=== PATIENT | male | born 1955 | race Caucasian/White ===

== ENCOUNTER → 2020-09-22 | Outpatient (CLI) | payer BC, MEDICARE | END | disposition home or self-care (01) | LOC: LABPAT 12:27 | PROVIDERS: ATTEND Orthopaedic Surgery | DX: Z01.812 Encounter for preprocedural laboratory examination (principal) | CPT/HCPCS: 87070 ==

== ENCOUNTER → 2020-10-16 | Outpatient (CLI) | payer MEDICARE ==
[2020-10-16 11:44] LABS: Appearance,Urine Clear (Clear); Bilirubin,Urine Negative (Negative); Blood,Urine Negative (Negative); Color,Urine Yellow; Glucose,Urine (UA) Negative (Negative); Ketones,Urine Negative (Negative); Leukocyte Esterase,Urine Negative (Negative); Nitrite,Urine Negative (Negative); Protein,Urine Trace (Negative); Specific Gravity,Urine 1.027 (1.001-1.035); Urobilinogen,Urine <2.0 mg/dL (<2.0)
[2020-10-16 11:57] LABS: HGB 15.3 gm/dL (13.0-17.5); MCH 31.3 pg (25.0-35.0); MCHC 34.7 g/dL (31.0-37.0); MCV 90.2 fL (80.0-100.0); Mean Platelet Volume 6.8; Platelet Count 210 k/uL (150-450); RBC 4.87 m/uL (4.30-5.90); RDW 13.3 % (11.5-15.5); WBC 5.3 k/uL (3.8-10.6)
[2020-10-16 12:13] LABS: ALT 16 U/L (4-49); AST 23 U/L (17-59); African American GFR (CKD) >90 (>60 ml/min/1.73 sqM); Albumin 4.4 g/dL (3.5-5.0); Alkaline Phosphatase 85 U/L (38-126); Anion Gap 10 mmol/L; Blood Urea Nitrogen 18 mg/dL (9-20); Calcium 8.7 mg/dL (8.4-10.2); Carbon Dioxide 22 mmol/L (22-30); Chloride 107 mmol/L (98-107); Glucose 109 mg/dL (74-99); Non-African American GFR(CKD) 78 (>60 ml/min/1.73 sqM); Potassium 4.1 mmol/L (3.5-5.1); Sodium 139 mmol/L (137-145); Total Bilirubin 0.6 mg/dL (0.2-1.3)
[2020-10-16 12:19] LABS: Partial Thromboplastin Time 24.1 sec (22.0-30.0); Prothrombin Time 10.1 sec (9.0-12.0)
== END | disposition home or self-care (01) ==
LOC: LABPAT 10:18
PROVIDERS: ATTEND Orthopaedic Surgery
DX: Z01.818 Encounter for other preprocedural examination (principal); M16.11 Unilateral primary osteoarthritis, right hip
CPT/HCPCS: 36415; 80053; 81003; 85027; 85610; 85730

== ENCOUNTER 2020-10-27 10:17 | Day surgery (SDC) | payer BC, MEDICARE ==
[2020-10-26 08:31] VITALS: BMI 29.3
[~2020-10-27 10:17] MED LIST: ACETAMINOPHEN TAB 500 MG TAB PO PRN; DEXAMETHASONE SOD PHOSPHATE 4 MG/ML 1 ML VIAL IV ONE; GABAPENTIN 300 MG CAP PO PRN; HYDROcodone/APAP 5-325MG 1 EACH TAB PO PRN; HYDROmorphone 0.2 MG/1 ML SYRINGE IVP PRN; HYDROmorphone 0.5 MG/0.5 ML SYRINGE IVP PRN; LIDOCAINE 1% (10MG/ML) FOR IV START INTRADERMA PRN; MAGNESIUM HYDROXIDE 2,400 MG/10 ML CUP PO PRN; MELOXICAM 7.5 MG TAB PO PRN; MIDAZOLAM 2 MG/2 ML VIAL IV PRN; NALOXONE 0.4 MG/ML 1 ML VIAL IV PRN; ONDANSETRON 4 MG/2 ML VIAL IVP ONE; ONDANSETRON 4 MG/2 ML VIAL IVP PRN; ROPIVACAINE 246.25 MG, EPINEPHrine 0.5 MG, KETOROLAC 30 MG, cloNIDine HCL/PF 80 MCG, WA... MISCELLANE PRN; TRANEXAMIC ACID 1,000 MG in SODIUM CHLORIDE 0.9% 100 ML IVPB PRN
[2020-10-27] MEDS: LACTATED RINGERS 1,000 ML IV SCH (11:03)
[2020-10-27] MEDS ORDERED: PHENYLEPHRINE 10 MG/ML VIAL ONE (11:19)
[2020-10-27] MEDS ORDERED: SODIUM CHLORIDE 0.9% IRRIG 1,000 ML BTL IRRIGATION ONE (11:19)
[2020-10-27] MEDS ORDERED: fentaNYL (PF) 50 MCG/ML 2 ML AMP ONE (11:19)
[2020-10-27] MEDS ORDERED: MIDAZOLAM 2 MG/2 ML VIAL ONE (11:19)
[2020-10-27] MEDS ORDERED: TRANEXAMIC ACID 1,000 MG/10 ML VIAL ONE (11:19)
[2020-10-27] MEDS ORDERED: PROPOFOL 10 MG/ML 20 ML VIAL IV ONE (11:19)
[2020-10-27] MEDS ORDERED: SODIUM CHLORIDE 0.9% 100 ML BAG ONE (11:19)
[2020-10-27] MEDS ORDERED: HEPARIN SODIUM,PORCINE 10,000 UNIT/ML 1 ML VIAL ONE (11:19)
[2020-10-27] MEDS ORDERED: ceFAZolin 3,000 MG in SODIUM CHLORIDE 0.9% IRRIGATIO 3,000 ML IRRIGATION ONE (11:24)
--- NOTE | 2020-10-27 12:41 | P.OP ---
Date of Procedure: 10/27/20 Preoperative Diagnosis: Severe osteoarthritis right hip Postoperative Diagnosis: Severe osteoarthritis right hip Procedure(s) Performed: Right total hip arthroplasty with a direct anterior approach Implants: [employer] Polarstem standard size 7 collar [employer] R3, 3 hole hemispherical acetabular shell, 52 mm [employer] Reflection 6.5 mm cancellus screw, 20 mm 2 [employer] R3, XLPE 20 acetabular liner [employer] Oxinium femoral head 36 m, +0 All components were press-fit. The articulation is Oxinium on polyethylene. Anesthesia: spinal Surgeon: Dannie Fry Addiction Counselor #1: Brenda Rodriguez Estimated Blood Loss (ml): 100 Pathology: other (Femoral head) Condition: stable Disposition: PACU Indications for Procedure: After failure of conservative treatment we discussed the surgical and no nsurgical treatment options at length. Patient wishes to proceed with a total hip arthroplasty with a direct anterior approach. Complications specific to this procedure were discussed at length, including but not limited to infection, leg length discrepancy, dislocation, nerve injury, and fracture. Covid-19 was also discussed at length with the patient, and they are aware of the current policies and procedures. The patient was given the option of delaying surgery, but they elect to proceed knowing these risks. Patient is aware of all these complications and informed consent was obtained Operative Findings: The operative findings are consistent with severe osteoarthritis of the right hip Description of Procedure: Patient was seen and evaluated in the preoperative area and the consent was reviewed. The operative site was marked with a skin marker. The patient was then brought to the operating room and given preoperative antibiotics intravenously. 1 g of Tranexamic acid was also given intravenously. A spinal anesthetic was administered by the anesthesia department. The patient was then placed on the [place] table with the bony prominences well-padded. The hip area was then prepped with a ChloraPrep solution and draped in the usual sterile fashion. A universal timeout was then performed, which confirmed the patient's name, surgical site, ALLERGIES, and procedure being performed on the consent. Next the incision site was located at 1 cm distal and 1 cm lateral to the anterior superior iliac spine. The skin and subcutaneous tissues were sharply incised. Incision was carefully dissected down to the fascia overlying the tensor fascia diana muscle. This fascia was then incised in line with the incision. Care was taken to stay laterally in order to avoid injuring the lateral femoral cutaneous nerve. Next, using blunt finger dissection, the tensor fascia diana muscle was dissected off its investing fascia. The muscle was then carefully retracted laterally with a cobra retractor over the lateral neck of the femur. Next, the circumflex vessels were identified and cauterized using the AquaMantis device. The anterior hip capsule was then exposed. The capsule was then opened and an inverted T fashion. Cobra retractors were then placed intracapsularly. The retractors were maintained intracapsular throughout the procedure. The proximal femur was then visualized. A small amount of traction was placed on the leg. The femoral neck was then osteotomized appropriate level above the lesser trochanter. A small wedge of bone was then removed from the remaining femoral head. Next, using a corkscrew the femoral head was removed from the acetabulum. On gross visual inspection, the femoral head had complete loss of articular cartilage and multiple periarticular osteophytes. The femoral head was then measured. Attention was then turned to the acetabulum. The acetabulum was exposed and any remaining labrum was excised. Sequential reaming of the acetabulum was performed using fluoroscopic guidance until there was a good bed of bleeding cancellus bone. When the appropriate size was reache d, a trial was then placed. The position and fit of the trial was checked with fluoroscopy. The trial was then removed. Then, using fluoroscopic guidance, the final implant was impacted at 20 of anteversion and 40 of abduction, and fully seated in the acetabulum. 2 screws were then placed in the acetabulum. Again fluoroscopy was used to check position of the screws. Next, the liner was then impacted, with a 20 elevated liner located in the anterior superior quadrant. Component locking was confirmed. Attention was then directed to the femur. With the aid of the [place] table, the femur was externally rotated to approximately 130, extended, and adducted under the opposite leg. A side hook was then placed under the proximal femur, and the side hook elevator was used to elevate the proximal femur while releasing the capsule. Retractors were then placed. A capsular release was performed, as well as a release of the conjoined tendon, which afforded excellent visualization of the proximal femur. Next, a box osteotome was used to lateralize the proximal femur. A candle molder hand was then used to locate the femoral canal. Sequential broaching was then performed with appropriate size which afforded excellent fixation in the proximal femur. A trial was then placed with appropriate head and neck, and the hip was gently reduced with the aid of the [place] table. Fluoroscopy was then used to check position of the components, as well as to ensure equal leg lengths. The hip was then gently dislocated and the trials were then removed. Final implants were then impacted and the hip was again reduced. Final fluoroscopic x-rays confirmed that the components were in anatomic position, as well as equal leg lengths. The hip was also taken through range of motion, and found to be stable. The hip was then copiously irrigated with antibiotic solution with pulsatile lavage. The hip was then irrigated with Irrisept solution. The soft tissues were then injected with a ropivacaine solution, which consisted of 246.25 mg of ropivacaine, 0.5 mg of epinephrine, 30 mg of Toradol, 80 g of clonidine, and 48.45 mL of sterile water, for a total of 100 mL of fluid injected. A second dose of 1 g of Tranexamic acid was also given intravenously. Any blood collected by [employer] was then returned to the patient at this time. The fascia was then closed with 2-0 strata fix suture. The subcutaneous tissue was closed with 3-0 Vicryl. The subcuticular tissue was closed with 3-0 strata fix suture. The skin was then closed with Exofin skin glue. After the glue and dried, and Optifoam silver impregnated dressing was applied. The patient was then transferred to the recovery room in stable condition. The first assistant manager RADHA Leon was required due to the complexity of surgery, and the need for skilled nutrition services assistant for positioning, draping, exposure, retraction, and closure of the wound.
--- NOTE | 2020-10-27 12:55 | FL ---
EXAMINATION TYPE: FL guidance operating room DATE OF EXAM: 10/27/2020 HISTORY: Fluoroscopy time 49 seconds of fluoroscopy provided. IMPRESSION: 1. Fluoroscopy time.
--- NOTE | 2020-10-27 12:56 | XR ---
EXAMINATION TYPE: XR Hip Limited RT DATE OF EXAM: 10/27/2020 COMPARISON: NONE HISTORY: Postop TECHNIQUE: One view submitted. FINDINGS: There is postsurgical change in near anatomic alignment. There is soft tissue edema and emphysema. IMPRESSION: 1. Postoperative change. Appears in near-anatomic alignment.
[2020-10-27] MEDS: diphenhydrAMINE 50 MG/ML 1 ML VIAL IVP ONE ×2 (13:31→13:52)
[2020-10-27] MEDS: SODIUM CHLORIDE 0.9% 1,000 ML IV SCH ×2 (14:44→19:58)
[2020-10-27] MEDS: SENNOSIDES-DOCUSATE SODIUM 1 EACH TAB PO SCH (20:17)
[2020-10-27] MEDS: ASPIRIN 325 MG TAB PO SCH (20:17)
[2020-10-27] MEDS: HYDROcodone/APAP 5-325MG 1 EACH TAB PO PRN (20:18)
[2020-10-28] MEDS: LACTATED RINGERS 1,000 ML IV SCH (03:33)
[2020-10-28 07:04] LABS: Basophils % (A) 0 %; Eosinophils # (A) 0.1 k/uL (0-0.7); Eosinophils % (A) 1 %; HCT 39.7 % (39.0-53.0); HGB 13.5 gm/dL (13.0-17.5); Lymphocytes # (A) 0.5 k/uL (1.0-4.8); Lymphocytes % (A) 8 %; MCH 31.3 pg (25.0-35.0); MCHC 34.1 g/dL (31.0-37.0); MCV 91.7 fL (80.0-100.0); Mean Platelet Volume 6.8; Monocytes # (A) 0.7 k/uL (0-1.0); Monocytes % (A) 10 %; Neutrophils # (A) 5.5 k/uL (1.3-7.7); Neutrophils % (A) 78 %; Platelet Count 168 k/uL (150-450); RBC 4.33 m/uL (4.30-5.90); WBC 7.1 k/uL (3.8-10.6)
[2020-10-28] MEDS: MELOXICAM 7.5 MG TAB PO SCH (07:36)
[2020-10-28] MEDS: HYDROcodone/APAP 5-325MG 1 EACH TAB PO PRN (07:38)
[2020-10-28] MEDS: ASPIRIN 325 MG TAB PO SCH ×2 (07:38→19:58)
--- NOTE | 2020-10-28 08:07 | P.PN ---
Subjective Progress Note Date: 10/28/20 This is a 65-year-old male who is status post right total hip arthroplasty. This is postoperative day #1 and patient is seen and evaluated at bedside with Dr. Dannie Fry. Patient states that his pain is well controlled today. Patient states that he has been walking. Patient states that he is considering a rehab stay because he lives alone. Patient denies any fever/chills, numbness, weakness, tingling, abdominal pain, shortness of breath or chest pain. Objective - Vital Signs Vital signs: Vital Signs Temp 98.3 F 10/28/20 07:45 Pulse 75 10/28/20 07:45 Resp 16 10/28/20 07:45 BP 137/89 10/28/20 07:45 Pulse Ox 99 10/28/20 07:45 Intake & Output 10/27/20 10/28/20 10/28/20 18:59 06:59 18:59 Intake Total 1101 Output Total 100 Balance 1001 Weight 76.5 kg Intake: IV 1101 Output: Estimated Blood Loss 100 Other: Voiding Method Toilet Toilet # Voids 1 1 - Exam Vital signs are stable. Patient is in no acute distress and is alert and oriented 3. Calf is soft and nontender to palpation. Dressing is clean, dry, and intact. Patient has full foot and ankle motion without pain or difficulty. Neurovascular status and circulatory status are intact. - Labs CBC & Chem 7: 10/28/20 06:35 Labs: Abnormal Lab Results - Last 24 Hours (Table) 10/28/20 Range/Units 06:35 Lymphocytes # 0.5 L (1.0-4.8) k/uL Assessment and Plan (1) S/P total hip arthroplasty Current Visit: Yes Status: Acute Code(s): Z96.649 - PRESENCE OF UNSPECIFIED ARTIFICIAL HIP JOINT SNOMED Code(s): 110558136009 (2) Osteoarthritis of right hip Current Visit: Yes Status: Acute Code(s): M16.11 - UNILATERAL PRIMARY OSTEOARTHRITIS, RIGHT HIP SNOMED Code(s): 691632670688782 Plan: Continue routine postop care and pain control. Continue anticoagulation with aspirin. Weightbearing as tolerated with a walker. Leave dressing in place for 10 days. Appreciate input from medicine. Anticipate discharge to rehab on Monday, or possible discharge home with home care later today or tomorrow.
--- NOTE | 2020-10-28 10:37 | P.CONS ---
History of Present Illness - Reason for Consult Hypertension - History of Present Illness Patient is a pleasant 65-year-old male came in for right hip arthroplasty. Patient is clinically doing well patient does have history of hypertension and hyperlipidemia does take lisinopril for blood pressure. Patient denied any fever chills nausea vomiting patient is passing as did not move his bowels yet patient is feeling well and that his pain is well-controlled patient doesn't have a Fan catheter at this time. Patient denied any cough fever chills nausea vomiting. Review of Systems REVIEW OF SYSTEMS: CONSTITUTIONAL: No fever, no malaise, no fatigue. HEENT: No recent visual problems or hearing problems. Denied any sore throat. CARDIOVASCULAR: No chest pain, orthopnea, PND, no palpitations, no syncope. PULMONARY: No shortness of breath, no cough, no hemoptysis. GASTROINTESTINAL: No diarrhea, no nausea, no vomiting, no abdominal pain. NEUROLOGICAL: No headaches, no weakness, no numbness. HEMATOLOGICAL: Denies any bleeding or petechiae. GENITOURINARY: Denies any burning micturition, frequency, or urgency. MUSCULOSKELETAL/RHEUMATOLOGICAL: Denies any joint pain, swelling, or any muscle pain. ENDOCRINE: Denies any polyuria or polydipsia. The rest of the 14-point review of systems is negative. Past Medical History Past Medical History: GERD/Reflux, Hyperlipidemia, Hypertension, Osteoarthritis (OA) History of Any Multi-Drug Resistant Organisms: None Reported Past Surgical History: Hernia Repair, Joint Replacement, Tonsillectomy Additional Past Surgical History / Comment(s): Right anterior hip replacement (10/27/20) Past Anesthesia/Blood Transfusion Reactions: No Reported Reaction Past Psychological History: No Psychological Hx Reported Smoking Status: Former smoker Past Alcohol Use History: None Reported Additional Past Alcohol Use History / Comment(s): quit smoking over 20 yrs ago, smoked less than 1ppd from age 18 Past Drug Use History: None Reported - Past Family History Mother Family Medical History: No Reported History Medications and Allergies Home Medications Medication Instructions Recorded Confirmed Type Aspirin 325 mg PO DAILY 10/26/20 10/27/20 History Famotidine [Pepcid] 20 mg PO DAILY 10/26/20 10/27/20 History Lisinopril [Prinivil] 10 mg PO QAM 10/26/20 10/27/20 History Simvastatin 40 mg PO DAILY 10/26/20 10/27/20 History Aspirin 325 mg PO BID #60 tab 10/28/20 Rx HYDROcodone/APAP 5-325MG [[place] 1 - 2 tab PO Q6HR PRN #48 tab 10/28/20 Rx 5-325] Sennosides [Senokot] 2 tab PO DAILY PRN #60 tablet 10/28/20 Rx Allergies Allergy/AdvReac Type Severity Reaction Status Date / Time No Known Allergies Allergy Verified 10/27/20 10:50 Physical Exam Vitals: Vital Signs Temp Pulse Pulse Pulse Resp BP BP 10/28/20 07:45 98.3 F 75 16 137/89 10/28/20 02:58 98.6 F 77 100/64 10/27/20 19:30 76 16 10/27/20 19:15 98.3 F 76 107/69 10/27/20 16:10 69 118/73 10/27/20 15:55 71 128/76 10/27/20 15:40 71 139/76 10/27/20 15:25 78 133/77 10/27/20 15:10 84 123/67 10/27/20 14:55 97.9 F 71 16 113/66 10/27/20 14:35 65 16 114/69 10/27/20 14:20 53 L 16 123/68 10/27/20 14:05 69 16 117/66 10/27/20 13:52 78 16 146/66 10/27/20 13:37 70 16 150/67 10/27/20 13:22 84 16 112/60 10/27/20 13:07 97 F L 51 L 16 130/58 10/27/20 10:48 98.4 F 101 H 17 139/82 Pulse Ox 10/28/20 07:45 99 10/28/20 02:58 99 10/27/20 19:30 10/27/20 19:15 100 10/27/20 16:10 99 10/27/20 15:55 100 10/27/20 15:40 99 10/27/20 15:25 99 10/27/20 15:10 100 10/27/20 14:55 100 10/27/20 14:35 100 10/27/20 14:20 100 10/27/20 14:05 100 10/27/20 13:52 100 10/27/20 13:37 100 10/27/20 13:22 100 10/27/20 13:07 100 10/27/20 10:48 98 Intake and Output 10/27/20 10/28/20 10/28/20 22:59 06:59 14:59 Other: Voiding Method Toilet Toilet # Voids 1 1 Weight 76.5 kg PHYSICAL EXAMINATION: GENERAL: The patient is alert and oriented x3, not in any acute distress. Well developed, well nourished. HEENT: Pupils are round and equally reacting to light. EOMI. No scleral icterus. No conjunctival pallor. Normocephalic, atraumatic. No pharyngeal erythema. No thyromegaly. CARDIOVASCULAR: S1 and S2 present. No murmurs, rubs, or gallops. PULMONARY: Chest is clear to auscultation, no wheezing or crackles. ABDOMEN: Soft, nontender, nondistended, normoactive bowel sounds. No palpable organomegaly. MUSCULOSKELETAL: Deferred to orthopedic surgery EXTREMITIES: No cyanosis, clubbing, or pedal edema. NEUROLOGICAL: Gross neurological examination did not reveal any focal deficits. SKIN: No rashes. Results CBC & Chem 7: 10/28/20 06:35 Labs: Abnormal Lab Results - Last 24 Hours (Table) 10/28/20 Range/Units 06:35 Lymphocytes # 0.5 L (1.0-4.8) k/uL Assessment and Plan Plan: -Hypertension: Patient is on lisinopril will monitor the blood pressure patient is in the hospital will start the this medication depending on his vitals here. The patient is being discharged today he can resume this medication from tomorrow. Next line-hyperlipidemia continue with statin -Right hip arthroplasty patient is on 325 mg of aspirin twice a day for DVT prophylaxis. Pain management as per primary service. -Gastroesophageal reflux disease.
[2020-10-28] MEDS: SODIUM CHLORIDE 0.9% 1,000 ML IV SCH (17:26)
[2020-10-28] MEDS: SENNOSIDES-DOCUSATE SODIUM 1 EACH TAB PO SCH (19:58)
[2020-10-29] MEDS: LACTATED RINGERS 1,000 ML IV SCH (00:08)
[2020-10-29] MEDS: SODIUM CHLORIDE 0.9% 1,000 ML IV SCH (00:08)
[2020-10-29] MEDS: ASPIRIN 325 MG TAB PO SCH (08:14)
[2020-10-29] MEDS: HYDROcodone/APAP 5-325MG 1 EACH TAB PO PRN (08:15)
[2020-10-29] MEDS: MELOXICAM 7.5 MG TAB PO SCH (08:15)
[2020-10-29] MEDS ORDERED: FAMOTIDINE 20 MG TAB PO SCH (09:00)
[2020-10-29] MEDS ORDERED: ATORVASTATIN 20 MG TAB PO SCH (09:00)
[2020-10-29] MEDS ORDERED: lisinopriL 10 MG TAB PO SCH (10:30)
[2020-10-29 11:10] VITALS: BP 160/82; PULSE 94; RESP 18; TEMP 98.6
--- NOTE | 2020-10-29 11:22 | P.PN ---
Subjective Progress Note Date: 10/29/20 - Reason for Consult Hypertension - History of Present Illness Patient is a pleasant 65-year-old male came in for right hip arthroplasty. Patient is clinically doing well patient does have history of hypertension and hyperlipidemia does take lisinopril for blood pressure. Patient denied any fever chills nausea vomiting patient is passing as did not move his bowels yet patient is feeling well and that his pain is well-controlled patient doesn't have a Fan catheter at this time. Patient denied any cough fever chills nausea vomiting. 10/29/2020 Patient is seen and evaluated in follow-up status post right hip arthroplasty. Following along with orthopedic surgery. Patient does have history of high blood pressure and hyperlipidemia and will resume lisinopril and continue his statin. Patient was working with PT/OT therapy today. Social work also following and patient will be going to [facility] for rehab. Review of systems: Constitutional: No reports of fatigue, fever, or chills Cardiovascular: No reports of chest pain or palpitations Respiratory: No reports of shortness of breath or cough GI: No reports of nausea, vomiting, or diarrhea : No reports of dysuria or retention Neurovascular: No reports of weakness or numbness All medications have been reviewed Objective - Vital Signs Vital signs: Vital Signs Temp 99.5 F 10/29/20 01:45 Pulse 103 H 10/29/20 01:45 Resp 20 10/29/20 01:45 BP 160/76 10/29/20 01:45 Pulse Ox 99 10/29/20 01:45 Intake & Output 10/28/20 10/29/20 10/29/20 18:59 06:59 18:59 Intake Total 1140 Balance 1140 Intake: Intake, IV Titration 840 Amount Sodium Chloride 0.9% 1, 840 000 ml @ 70 mls/hr IV . [id number] [facility] Rx#:[id number] Oral 300 Other: Voiding Method Toilet Toilet # Voids 2 - Exam GENERAL: The patient is alert and oriented x3, not in any acute distress. Well developed, well nourished. HEENT: Pupils are round and equally reacting to light. EOMI. No scleral icterus. No conjunctival pallor. Normocephalic, atraumatic. No pharyngeal erythema. No thyromegaly. CARDIOVASCULAR: S1 and S2 present. No murmurs, rubs, or gallops. PULMONARY: Chest is clear to auscultation, no wheezing or crackles. ABDOMEN: Soft, nontender, nondistended, normoactive bowel sounds. No palpable organomegaly. MUSCULOSKELETAL: Deferred to orthopedic surgery EXTREMITIES: No cyanosis, clubbing, or pedal edema. Right hip anterior surgical dressing is dry and intact with no surrounding redness or swelling noted NEUROLOGICAL: Gross neurological examination did not reveal any focal deficits. SKIN: No rashes. - Labs CBC & Chem 7: 10/28/20 06:35 Assessment and Plan Assessment: -Hypertension: Patient is on lisinopril which will be resumed -hyperlipidemia continue with statin -Right hip arthroplasty patient is on 325 mg of aspirin twice a day for DVT prophylaxis. Pain management as per primary service. -Gastroesophageal reflux disease. Plan: Continue with current medications. Home medications have been resumed. Patient has been working with physical therapy and will be going to [facility] for continued PT/OT therapy. Surgical dressing on the right hip is dry and intact with no surrounding redness or swelling noted. Patient states he had a small bowel movement this morning and is tolerating diet with no reports of nausea or vomiting. Will continue to follow along with orthopedic surgery during hospitalization. Further recommendations to follow. Patient is being discharged to [facility] today
--- NOTE | 2020-10-29 11:51 | P.DS ---
Providers Expected date of discharge: 10/29/20 Attending physician: Dannie Fry Consults: 10/27/20 09:26 Consult Physician Routine Consulting Provider: Keisha Traore Consult Reason/Comments: medical management Do you want consulting provider notified?: Yes Primary care physician: Fabi Guzman - Discharge Diagnosis(es) (1) S/P total hip arthroplasty Current Visit: Yes Status: Acute (2) Osteoarthritis of right hip Current Visit: Yes Status: Acute Hospital Course: This is a 65-year-old male with known history of degenerative arthritis of the right hip. The patient presents for evaluation. After discussion and consideration patient elects to proceed with total hip arthroplasty. The patient is seen preoperatively by Dr. Fry and cleared for surgery. Patient is admitted to [facility] on 10/27/2020 for total hip arthroplasty. The procedures performed without complication or sequelae. The patient is doing well postoperatively. Labs and vital signs are stable on day of discharge. On day of discharge patient's hip incision is healing well. There is minimal erythema. There is no drainage noted at this time. There is minimal soft tissue swelling to the hip and thigh. Patient has full foot and ankle motion without difficulty or pain. Neurovascular status to the right lower extremity is intact. Opioid start talking form is discussed and signed. Patient is discharged to rehabilitation in good condition. Please see med rec for accurate list of home medications. Plan - Discharge Summary Discharge Rx Participant: Yes New Discharge Prescriptions: New Aspirin 325 mg PO BID #60 tab HYDROcodone/APAP 5-325MG [[place] 5-325] 1 - 2 tab PO Q6HR PRN #48 tab PRN Reason: Pain Sennosides [Senokot] 2 tab PO DAILY PRN #60 tablet PRN Reason: Constipation Magnesium Hydroxide [Milk of Magnesia Concentrate] 2,400 mg PO DAILY PRN ml PRN Reason: Constipation Continue Lisinopril [Prinivil] 10 mg PO QAM Famotidine [Pepcid] 20 mg PO DAILY Aspirin 325 mg PO DAILY Simvastatin 40 mg PO DAILY Discharge Medication List Aspirin 325 mg PO DAILY 10/26/20 [History] Famotidine [Pepcid] 20 mg PO DAILY 10/26/20 [History] Lisinopril [Prinivil] 10 mg PO QAM 10/26/20 [History] Simvastatin 40 mg PO DAILY 10/26/20 [History] Aspirin 325 mg PO BID #60 tab 10/28/20 [Rx] HYDROcodone/APAP 5-325MG [[place] 5-325] 1 - 2 tab PO Q6HR PRN #48 tab 10/28/20 [Rx] Sennosides [Senokot] 2 tab PO DAILY PRN #60 tablet 10/28/20 [Rx] Magnesium Hydroxide [Milk of Magnesia Concentrate] 2,400 mg PO DAILY PRN ml 10/29/20 [Rx] Follow up Appointment(s)/Referral(s): Fabi Guzman MD [Primary Care Provider] - 1 Week Dannie Fry DO [Doctor of Osteopathic Medicine] - 11/09/20 8:45 am Activity/Diet/Wound Care/Special Instructions: Weightbearing as tolerated with walker. Leave dressing intact. Dressing may be removed by home care nurse or by patient in 10 days. May shower with dressing on. Please take aspirin 325mg twice daily for 30 days to prevent blood clots. Recommend use of compression stockings daily until follow up to help prevent swelling and blood clots. May remove at night before sleeping. Please follow-up with [facility] in 2 weeks and call with any questions or concerns, . Discharge Disposition: TRANSFER TO SNF/ECF
== END 2020-10-29 13:29 ==
LOC: OR 10:17 → 4SSUR 14:19 → OR 10-29 13:29
PROVIDERS: ATTEND Orthopaedic Surgery
DX: M16.11 Unilateral primary osteoarthritis, right hip (principal); M25.751 Osteophyte, right hip; I10 Essential (primary) hypertension; E78.5 Hyperlipidemia, unspecified; K21.9 Gastro-esophageal reflux disease without esophagitis; H91.90 Unspecified hearing loss, unspecified ear; Z82.49 Family history of ischemic heart disease and other diseases of the circulatory system; Z87.891 Personal history of nicotine dependence; Z90.89 Acquired absence of other organs; Z98.890 Other specified postprocedural states; Z79.82 Long term (current) use of aspirin; Z79.899 Other long term (current) drug therapy
CPT/HCPCS: 97116; 97110; 97161; 97535; 97166; 86891; 85025; 88300; 73501; 27130; C1776; J2250; J0171; J1200; J1644; J1100; J2370; J0690 ×3; J2405; J3010; J1885; J2795; J2704; J0735; 86850; 86900; 86901